=== PATIENT | female | born 1990 | race Caucasian/White ===

== ENCOUNTER → 2021-07-17 | Outpatient (CLI) | payer OTHER | LOC: KOH-I 11:30 | DX: S92.002A Unspecified fracture of left calcaneus, initial encounter for closed fracture (principal) | CPT/HCPCS: 73700 ==

== ENCOUNTER → 2021-08-23 | Outpatient (CLI) | payer OTHER | LOC: KOH-I 15:46 | DX: S92.002D Unspecified fracture of left calcaneus, subsequent encounter for fracture with routine healing (principal) | CPT/HCPCS: 73630; 73650 ==